=== PATIENT | female | born 1960 | race Caucasian/White ===

== ENCOUNTER 2016-03-28 14:39 | Outpatient (CLI) | payer OTHER ==
--- NOTE | 2016-03-28 15:27 | DIAGNOSTIC IMAGING REPORT ---
PROCEDURE: XR NASAL BONES INDICATION: POSSIBLE METALIC SUBSTANCE/NASAL DORSUM TECHNIQUE: Four views of the nose and nasal bone COMPARISON: None. FINDINGS: 1 mm metallic fragment at the midpoint in the dorsum of the nose. No fractures IMPRESSION: 1. 1 mm metallic fragment at the midpoint in the dorsum of the nose.
== END 2016-03-28 23:00 ==
LOC: XR SRH 14:39
DX: L92.3 Foreign body granuloma of the skin and subcutaneous tissue (principal)

== ENCOUNTER 2016-04-20 08:10 | Outpatient (CLI) | payer OTHER ==
--- NOTE | 2016-04-20 13:28 | DIAGNOSTIC IMAGING REPORT ---
PROCEDURE: MG BILATERAL SCREENING W/CAD INDICATION: SCREENING TECHNIQUE: Bilateral CC and MLO digital views. COMPARISON: Mammograms 11/12/2014, 06/24/2013 and 06/04/2012 . FINDINGS: Computer-aided detection applied. Moderately dense. No change. IMPRESSION: 1. Negative mammogram RESULT CODE: 1- Negative. A. A negative report should not delay biopsy if a dominant or clinically suspicious mass is present. 10-15% of cancers are not identified by x-ray. B. A negative report may reinforce clinical impression. C. Adenosis and dense breasts may obscure an underlying neoplasm. D. False positive reports average 6-10%. E.. A yearly screening mammogram is recommended. A reminder letter will be scheduled.
== END 2016-04-20 23:00 ==
LOC: MAM SRH 08:10
DX: Z12.31 Encounter for screening mammogram for malignant neoplasm of breast (principal)